=== PATIENT | female | born 1985 | race American Indian/Alaskan Native ===

== ENCOUNTER 2016-05-02 19:13 | Outpatient (CLI) | payer MEDICAID ==
[2016-05-05 09:53] LABS: PTT-LA 42 sec (<=40)
== END 2016-05-02 19:14 | disposition home or self-care (01) ==
LOC: LAB 19:13
PROVIDERS: ATTEND Family Medicine
DX: M32.19 Other organ or system involvement in systemic lupus erythematosus (principal)
CPT/HCPCS: 36415; 85613